=== PATIENT | female | born 1990 | race Caucasian/White ===

== ENCOUNTER → 2017-10-03 16:16 | Outpatient (CLI) | payer OTHER, MEDICAID, SELFPAY ==
--- NOTE | 2017-10-03 16:20 | DI.MRI.S_ITS ---
PROCEDURE: MR HEAD/BRAIN WO/W CON INDICATIONS: DIZZINESS TECHNIQUE: Noncontrast axial T1 spin echo, axial T2 fast spin echo, sagittal and axial FLAIR, coronal T2 fast spin echo, axial gradient echo, axial diffusion and ADC through the brain. After the administration of contrast, axial and coronal 3D VIBE or T1 spin echo with fat saturation through the brain. COMPARISON: None. FINDINGS: Image quality: Excellent. CSF Spaces: Basal cisterns are patent. No extra-axial fluid collections. Ventricles are normal in size and shape. Brain: No midline shift. No intracranial bleeds or masses. No abnormal intracranial enhancement. The brainstem appears normal. Diffusion-weighted images demonstrate no acute ischemic insults. No chronic ischemic insults. Normal intravascular flow voids are present. Skull and face: Calvarial marrow is normal in signal. Orbits appear normal. Sinuses: Sinuses and mastoids appear clear. IMPRESSION: No acute intracranial findings. No findings to explain patient's dizziness. Dictated by: Rabia Figueroa M.D. on 10/03/2017 at 16:25 Approved by: Rabia Figueroa M.D. on 10/03/2017 at 16:28
== END ==
PROVIDERS: PCP Nurse Practitioner Family; Visit Provider Family Medicine
DX: R42 Dizziness and giddiness (principal)
CPT/HCPCS: 70553; A9579

== ENCOUNTER → 2019-10-19 08:39 | Outpatient (CLI) | payer OTHER, SELFPAY ==
--- NOTE | 2019-10-19 | DI.RAD.S_ITS ---
PROCEDURE: FL BARIUM SWALLOW INDICATIONS: Dysphagia, unspecified COMPARISON: None. FINDINGS: Function: There is normal esophageal peristalsis. No elicited gastroesophageal reflux. There is normal transit of a calibrated barium tablet through the esophagus into the stomach. There is normal initiation incoordination of the oral phase of swallowing reflex. No penetration of the airway. No pooling of contrast material in the vallecular or piriform sinuses. No esophageal dysmotility identified. Morphology: Air-contrast images demonstrate normal mucosal morphology. Single contrast views show no esophageal strictures, extrinsic mass effects, or diverticula. Limited images of the stomach demonstrate normal appearance. IMPRESSION: Normal barium swallow study. Dictated by: Hazel Garcia MD, PhD on 10/19/2019 at 13:29 Approved by: Hazel Garcia MD, PhD on 10/19/2019 at 13:30
== END ==
PROVIDERS: PCP Family Medicine; Referring Provider Family Medicine; Visit Provider Family Medicine
DX: R13.10 Dysphagia, unspecified (principal)
CPT/HCPCS: 74220

== ENCOUNTER → 2019-12-21 09:18 | Outpatient (CLI) | payer OTHER, SELFPAY ==
[2019-12-22 19:18] LABS: COVID19 Sendout Not Detected (Not Detect)
== END ==
PROVIDERS: PCP Family Medicine; Visit Provider Physician Assistant
DX: Z11.59 Encounter for screening for other viral diseases (principal)
CPT/HCPCS: 87635

== ENCOUNTER 2019-12-24 14:47 | Day surgery (SDC) | payer OTHER, SELFPAY ==
[2019-12-24] VITALS (9 sets, daily range): BP systolic 104–128; BP diastolic 62–87; PULSE 68–90; RESP 12–20; TEMP 36.2–36.6; O2SAT 94–100; BMI 29.2
--- NOTE | 2019-12-24 | PATH_ITS ---
[facility] Accession Number: [id number] . 01 Material submitted: . PART A: duodenum - THIRD PORTION DUODENUM PART B: gastrointestinal site - ANTRUM PART C: gastrointestinal site - FUNDUS PART D: gastrointestinal site - BODY PART E: esophagus, E-G Junction - GE JUNCTION 6 O'CLOCK PART F: esophagus, E-G Junction - GE JUNCTION AT 9 O'CLOCK . 02 Diagnosis: A. Duodenum, Third Portion, Biopsy: Duodenal mucosa with no diagnostic abnormality. Negative for active inflammation, features of sprue, dysplasia, or malignancy. . B. Antrum, Biopsy: Gastric antral mucosa with mild chronic inflammation. Negative for Helicobacter organisms by immunohistochemistry. Negative for intestinal metaplasia. Negative for dysplasia or malignancy. . C-D: Fundus, Body, Biopsies: Body mucosa with no diagnostic abnormality. No evidence of Helicobacter organisms on H/E stain. Negative for intestinal metaplasia. Negative for dysplasia and malignancy. . E. Gastroesophageal Junction, 6 o'clock, Biopsy: Proximal gastric mucosa with mild chronic inflammation. Negative for specialized intestinal metaplasia, dysplasia or malignancy. . F. Gastroesophageal Junction at 9 o'clock, Biopsy: Squamocolumnar junctional mucosa with mild chronic inflammation. Negative for specialized intestinal metaplasia, dysplasia or malignancy. [facility] 12/29/2019 1259 Local . 02 Electronically signed: . Anirudh Cortes MD, PhD, Pathologist NPI- [id number] . 01 Gross description: . Part A: THIRD PORTION DUODENUM: Received in formalin is 1 fragment(s) of frost, soft tissue measuring 0.3 x 0.3 x 0.3 cm submitted entirely in 1 cassette(s) Part B: ANTRUM: Received in formalin are 2 fragment(s) of frost, soft tissue measuring 0.1 x 0.1 x 0.1 cm to 0.3 x 0.2 x 0.2 cm submitted entirely in 1 cassette(s) Part C: FUNDUS: Received in formalin are 2 fragment(s) of frost, soft tissue measuring 0.2 x 0.2 x 0.2 cm to 0.3 x 0.2 x 0.2 cm submitted entirely in 1 cassette(s) Part D: BODY: Received in formalin are 2 fragment(s) of frost, soft tissue measuring 0.1 x 0.1 x 0.1 cm to 0.3 x 0.2 x 0.2 cm submitted entirely in 1 cassette(s) Part E: GE JUNCTION 6 O'CLOCK: Received in formalin is 1 fragment(s) of frost, soft tissue measuring 0.2 x 0.2 x 0.2 cm submitted entirely in 1 cassette(s) Part F: GE JUNCTION AT 9 O'CLOCK: Received in formalin is 1 fragment(s) of frost, soft tissue measuring 0.1 x 0.1 x 0.1 cm submitted entirely in 1 cassette(s) /ANTONIO 12/27/2019 1944 Local . 02 Microscopic: . B. An immunohistochemical stain was performed to evaluate for Helicobacter organisms and is negative. The control stain showed appropriate reactivity. . * This test was developed and its performance characteristics determined by [facility]. It has not been cleared or approved by the U.S. Food and Drug Administration. The FDA has determined that such clearance or approval is not necessary. This test is used for clinical purposes. It should not be regarded as investigational or for research. . 02 Pathologist provided ICD-10: K29.70, K20.9 . 02 CPT . 169429, 471094, 606802, 572203, 076575, 464853, D10703 Performed at: 01 [facility] [address], [place], [place] [id number] MD Randy Carlson MD Phone: [phone] Performed at: 02 [facility] [address] [place], [place] [id number] MD Audrey Alcantar MD Phone: [phone]
--- NOTE | 2019-12-24 12:14 | P.HP_ITS ---
History of Present Illness History of Present Illness Date Patient Seen: 12/24/19 Chief complaint: SDC Narrative: 29 Years Old Female seen today for consideration of a diagnostic EGD. Reports difficulty with swallowing, solids worse than liquids. Denies sensation of fullness. No nausea or vomiting. No epigastric pain. Has been evaluated by ENT, they think that there may be an anxiety component. Barium swallow on 10/19/2019 was normal. Overall health issues have been stable, inclu ding no major cardiac events for at least 6 weeks. Current Medications (verified): 1) Hydroxyzine Hcl 25 Mg Oral Tablet (Hydroxyzine Hcl) .... Take 1 tablet 4 times daily as needed for anxiety 2) Citalopram Hydrobromide 10 Mg Oral Tablet (Citalopram Hydrobromide) .... Take one tablet daily, for treatment of depression or anxiety. 3) Hydrochlorothiazide 25 Mg Oral Tablet (Hydrochlorothiazide) .... Take one tablet by mouth daily. 4) Multi-Vitamin/minerals Oral Tablet (Multiple Vitamins-Minerals) .... take one daily Allergies (verified): No Known Drug Allergies Past Medical History: Meniere's disease Anxiety Dysphagia Right foot pain Dizziness Past Surgical History: wisdom teeth Family History: Father: alcohol Mother: Breast cancer, hypertension, hypothyroidism Sister: thyroid issues Brother: asthma Social History: Marital Status: Children: 1 daughter, 1 son Occupation: Bookekeeper Household Members: spouse, children Education: 14 Exercise Times per Week: 3 Sun Exposure: frequently Seat Belt Use: yes Meds Home Medications and Allergies Home Medications Medication Instructions Recorded Confirmed Type VIT#96/FERROUS FUM/FA 1 tab PO Q DAY #90 05/21/12 12/24/19 Rx ( Tablet) citalopram 10 mg PO DAILY 12/24/19 12/24/19 History hydrochlorothiazide 25 mg PO DAILY 12/24/19 12/24/19 History Allergies Allergy/AdvReac Type Severity Reaction Status Date / Time No Known Drug Allergies Allergy Verified 12/24/19 14:58 Review of Systems Review of Systems ROS: Yes All systems reviewed with the patient and are negative except as otherwise documented Exam Narrative Exam Narrative: GENERAL: Alert and oriented, appearing stated age and in no acute distress. HEENT: Head normocephalic/atraumatic. Pupils equal, round, and reactive to light and accomodation. Extraocular muscles intact. Tympanic membranes clear. Nasal mucosa moist, septum midline. Oral mucosa moist, no lesions. Neck soft and supple, no lymphadenopathy. LUNGS: Clear to ausculation bilaterally, no wheezes, rhonchi or rales. CV: Normal S1 and S2 with regular rate and rhythm, no audible murmurs, rubs or gallops. ABDOMEN: Soft, non-tender, non-distended, no organomegaly. Positive bowel sounds. EXTREMITIES: No clubbing, cyanosis, or edema. NEURO: Cranial nerves II through XII grossly intact, no focal deficits. PSYCH: Alert and oriented x 3. SKIN: No concerning lesions. Assessment & Plan Assessment & Plan narrative: 1. Dysphagia PLAN: EGD The nature and character of the procedure as well as anticipated results were discussed. The possibility of not completing the procedure was also discussed. Possible complications including aspiration pneumonia, bleeding, perforation and reaction to medications either for sedation or preparation and missed lesions were discussed. Questions were answered and proceeding to the colonoscopy was elected. Informed consent signed. I sincerely appreciate the referral allowing me to participate in this patient's care. Please contact me with any questions or concerns.
--- NOTE | 2019-12-24 12:15 | PM.OP.ENDO ---
Operative Date/Time/Diagnoses Date of procedure: 12/24/19 Procedure Notes SCOAP/Timeout: 3:38 pm Procedure in detail: ENDOSCOPIST: Elle Hernandez MD Sedation RN: Rosy Carmona RN Anesthesiologist: Dr. Valenzuela Sedation start time: 3:39 p.m. Sedation end time: 4:15 p.m. PROCEDURE: EGD with biopsy REFERRING PROVIDER: Nain Moise MD INDICATIONS: 1. Dysphagia MEDICATION: Versed 12 mg and fentanyl 200 mcg administered with very little effect. Anesthesia was called to bedside secondary to failed sedation. Dr. Valenzuela administered 80 mg of propofol and adequate sedation was finally achieved. ASA Ratin DURATION OF PROCEDURE: 9 minutes. COMPLICATIONS: None. LIMITATIONS: None EXTENT OF PROCEDURE: Third portion of the Duodenum. PROCEDURE: The high-definition gastroduodenoscope was introduced into the posterior oropharynx under direct vision after Hurricaine spray, noted IV sedation, and proper informed consent. The esophagus was identified and intubated under direct visualization. The scope was quickly passed through the esophagus and into the fundus of the stomach. A clear fundal pool was aspirated. The scope was then advanced to the antrum and the pylorus was identified. The scope was passed through the pylorus into the second and third portions of the duodenum. No abnormalities were noted in the duodenum, duodenal bulb or pyloric channel. Random biopsies taken x2. The antrum had minor superficial hyperemesis and targeted biopsy taken x2. J maneuver was produced. No abnormalities were noted of the proximal body, fundus or cardia. Random biopsy taken x2. A small hiatal hernia was noted. Scope was broken out of the J maneuver and the remainder of the stomach was carefully inspected upon withdrawal and was normal, random biopsy taken x2. The stomach was carefully deflated of all air on withdrawal. The distal esophagus was carefully inspected and Z-line was noted to be irregular, 2 biopsies taken at 6 and 9 o'clock. Top of the gastric folds noted at 40 cm from the incisors; circumferential extent of the metaplasia was 38 cm from the incisors; maximal extent of the metaplasia was 37 cm from the incisors. The remainder of the esophagus was normal upon withdrawal. The larynx and vocal cords appeared to be unremarkable. IMPRESSION: 1. Superficial hyperemesis, antrum 2. Small hiatal hernia 3. Endoscopically suspected esophageal mucosa, C3M2 PLAN: 1. Follow-up in clinic status post pathology results. The possibility of missed lesion including a malignancy was discussed prior with the patient. Potential alarm symptoms have been discussed and should be reported by the patient immediately.
[2019-12-24] MEDS: LACTATED RINGERS 1,000 ML 200 ML IV ×2 (15:10→16:29)
[2019-12-24] MEDS: MIDAZOLAM 5 MG/5 ML VIAL IV (15:39)
[2019-12-24] MEDS: fentaNYL 250 MCG/5 ML INJ IV (15:39)
[2019-12-24] MEDS: LIDOCAINE 4% SOLN 50 ML 20 ML TOP (15:39)
[2019-12-24] MEDS: LIDOCAINE JELLY 2% 5 ML 1 APPLIC TOP (15:41)
--- NOTE | 2019-12-24 17:28 | SUR.PHASEII ---
Pt awake and alert. Pt states no dizziness, but states she is tired. Pt states she is cold. Temp 97.9. Arms cool, legs warm. Offered warm coffee - pt refused. Pt sent home with a warm blanket.
== END 2019-12-24 17:10 | disposition home or self-care (01) ==
PROVIDERS: PCP Family Medicine; Referring Provider Student in an Organized Health Care Education/Training Program; Visit Provider Student in an Organized Health Care Education/Training Program
PROC: 0DJ08ZZ Inspection of Upper Intestinal Tract, Via Natural or Artificial Opening Endoscopic (ICD-10-PCS; CPT 43235; principal; 2019-12-24 16:00)
DX: K20.9 Esophagitis, unspecified (principal); F41.9 Anxiety disorder, unspecified; F32.9 Major depressive disorder, single episode, unspecified; K44.9 Diaphragmatic hernia without obstruction or gangrene; K29.50 Unspecified chronic gastritis without bleeding
CPT/HCPCS: 43239; J2250; J3010

== ENCOUNTER → 2020-06-06 14:00 | Outpatient (CLI) | payer OTHER, SELFPAY ==
--- NOTE | 2020-06-06 14:02 | DI.US.S_ITS ---
PROCEDURE: US OB <= 14 WEEKS FETUS INDICATIONS: SIZE AND DATES OUTSIDE/PRIOR DATING DATA: Last menstrual period (LMP): 04/17/2020 LMP-based estimated date of delivery (LALY): 01/22/2021. First dating scan (date and location): 06/06/2020. Estimated date of delivery (LALY) from first dating scan: 01/18/2021. TECHNIQUE: Real-time scanning was performed of the fetus and maternal pelvic organs, with image documentation. Endovaginal scanning was also performed to better visualize the fetus and maternal ovaries. COMPARISON: None. FINDINGS: Embryo: [place]-rump length measures 14 mm corresponding to 7 weeks 5 days. Embryonic heart rate measures 100 beats per minute. Measurement variability in dating: +/- 4 weeks by LMP, +/- 7 days by mean sac diameter (use before 6 weeks gestation if crown-rump length not able to be measured), +/- 5 days by crown-rump length (up to 8 weeks 6 days gestation), +/- 7 days by crown-rump length (up to 13 weeks 6 days gestation). Maternal organs: Ovaries within normal limits with left corpus luteal cyst. IMPRESSION: 7 week 5 day single living IUP. Dictated by: Ezra Saldivar [facility] Interpreted: Stephanie Barone MD on 06/06/2020 at 15:25 Approved by: Stephanie Barone M.D. on 06/06/2020 at 18:15
== END ==
PROVIDERS: PCP Family Medicine; Referring Provider Family Medicine; Visit Provider Family Medicine
DX: Z36.87 Encounter for antenatal screening for uncertain dates (principal); Z3A.01 Less than 8 weeks gestation of pregnancy
CPT/HCPCS: 76801

== ENCOUNTER → 2020-08-30 11:49 | Outpatient (CLI) | payer OTHER, SELFPAY ==
--- NOTE | 2020-08-30 | DI.US.S_ITS ---
PROCEDURE: US OB >= 14 WEEKS FETUS INDICATIONS: 20 WEEK ANATOMICAL SURVEY OUTSIDE/PRIOR DATING DATA: Last menstrual period (LMP): 04/16/2020. LMP-based estimated date of delivery (LALY): 01/22/2021 . First dating scan (date and location): 06/06/2020 . Estimated date of delivery (LALY) from first dating scan: 01/18/2021 . TECHNIQUE: Real-time scanning was performed of the fetus, with image documentation and biometric measurements. Endovaginal scanning: No COMPARISON: None. FINDINGS: General: A single living intrauterine gestation is present. Presentation: Vertex. Placenta: Placental position is posterior, without previa. Amniotic fluid index: 10 cm, normal range is 5-24 cm. heart rate: 152 beats per minute. Maternal cervical canal: 5.8 cm long. Normal lower limit is 2.5 cm. biometrics: Biparietal diameter: 19 weeks 3 days Head circumference: 18 weeks 6 days Abdominal circumference: 19 weeks 4 days Femur length: 19 weeks 5 days Estimated gestational age from initial scan: 19 weeks 6 days Composite gestational age from present scan: 19 weeks 3 days Estimated weight and percentile: 299 g; 29th percentile Measurement variability for biometric dating: +/- 7 days from 14 weeks to 15 weeks 6 days gestation, +/- 10 days from 16 weeks to 21 weeks 6 days gestation, +/- 2 weeks from 22 weeks to 27 weeks 6 days gestation, +/- 3 weeks for 28 weeks gestation or later. weight reference: 4500 g or EFW >90/95% is considered macrosomia or large for gestational age. EFW <10% is small for gestational age. EFW 5% or less is considered intra-uterine growth restriction. Anatomic survey: Neuro: Ventricles are non-dilated at less than 10 mm. Cisterna magna is normal at 3-11 mm. Cerebellum is normal in size and morphology. Nuchal skin fold: Normal at less than 6 mm between 14-21 weeks gestational age. Face: Nose and lips, facial profile are normal. Spine: No evidence for spina bifida. Heart: Not well seen. Diaphragm: Diaphragm is intact. Stomach: Left-sided stomach is present. Kidneys: No hydronephrosis. Normal is less than 5 mm in 2nd trimester, less than 7 mm in 3rd trimester. Cord: 3-vessel cord has orthotopic insertion. Bladder: Normal in size. Extremities: All 4 extremities identified. IMPRESSION: 1. Single living IUP redemonstrated and interval growth is normal. 2. heart not well visualized; otherwise normal anatomy. Follow-up recommended. Dictated by: Ezra TOLBERT Interpreted: Jeffrey Islas MD on 08/30/2020 at 16:10 Transcribed by: CHHAYA on 08/30/2020 at 16:12 Approved by: Jeffrey Islas M.D. on 08/30/2020 at 16:56
== END ==
PROVIDERS: PCP Family Medicine; Referring Provider Family Medicine; Visit Provider Family Medicine
DX: Z36.89 Encounter for other specified antenatal screening (principal); Z3A.19 19 weeks gestation of pregnancy
CPT/HCPCS: 76811

== ENCOUNTER → 2020-09-29 08:52 | Outpatient (CLI) | payer OTHER, SELFPAY ==
--- NOTE | 2020-09-29 08:53 | DI.US.S_ITS ---
PROCEDURE: US OB FOLLOW UP INDICATIONS: CARDIAC REVISUALIZATION OUTSIDE/PRIOR DATING DATA: Last menstrual period (LMP): 04/17/20. LMP-based estimated date of delivery (LALY): 01/22/21 First dating scan (date and location): 06/06/20 Estimated date of delivery (LALY) from first dating scan: 01/18/21 TECHNIQUE: Real-time scanning was performed of the fetus, with image documentation. Endovaginal scanning: Not needed COMPARISON: None. FINDINGS: A single living intrauterine gestation is present. Presentation: Transverse head left. Placenta: Placental position is posterior , without previa. Amniotic fluid index: 14.0 cm, normal range is 5-24 cm. heart rate: 147 beats per minute. Maternal cervical canal: 5.2 cm long. Normal lower limit is 2.5 cm. Estimated gestational age from initial scan: 24 weeks 1 day . Note: The prior OB ultrasound did not achieve adequate visualization of the four-chamber view of the heart and cardiac outflow tracts. The current study allows excellent visualization of the structures. IMPRESSION: Completion of the anatomic survey with normal-appearing four-chamber view of heart and ventricular outflow tracts. Dictated by: Ej Estrada M.D. on 09/29/2020 at 11:07 Approved by: Ej Estrada M.D. on 09/29/2020 at 11:10
== END ==
PROVIDERS: PCP Family Medicine; Referring Provider Family Medicine; Visit Provider Family Medicine
DX: Z36.2 Encounter for other antenatal screening follow-up (principal); Z3A.24 24 weeks gestation of pregnancy
CPT/HCPCS: 76816

== ENCOUNTER → 2020-12-29 09:37 | Outpatient (ROUT) | payer OTHER, SELFPAY | PROVIDERS: PCP Family Medicine; Visit Provider Family Medicine | DX: Z34.83 Encounter for supervision of other normal pregnancy, third trimester (principal) | CPT/HCPCS: 87081; 87147 ==

== ENCOUNTER 2021-01-09 11:12 | Observation (INO) | payer OTHER, MEDICAID, SELFPAY ==
--- NOTE | 2021-01-14 13:50 | PM.PROC.1 ---
Procedures Date/Time Date of procedure: 01/09/21 Time of procedure: 12:30 General Procedure description: External cephalic version After informed consent was obtained and a reactive nonstress test observed, an ultrasound was performed which confirmed the baby in the breech presentation with the head midline and spine 2 patient's right. Four attempts were made with a check of heart rate in between by ultrasound which were unsuccessful at moving the baby. At the completion of the procedure a nonstress test was performed which was reactive. The patient tolerated the procedure well. Complications: none
== END 2021-01-09 14:25 | disposition home or self-care (01) ==
PROVIDERS: Admitting Provider Obstetrics & Gynecology; PCP Family Medicine Adult Medicine; Referring Provider Obstetrics & Gynecology; Visit Provider Obstetrics & Gynecology
DX: O32.1XX0 Maternal care for breech presentation, not applicable or unspecified (principal); Z3A.38 38 weeks gestation of pregnancy
CPT/HCPCS: 59025; 59050; 59412; 76815; G0378; G0379

== ENCOUNTER 2021-01-16 13:09 | Inpatient (IN) | payer OTHER, MEDICAID, SELFPAY ==
--- NOTE | 2021-01-16 13:29 | P.HPOB_ITS ---
OB HPI Date/Time Date of admission: 01/16/21 Date Patient Seen: 01/16/21 Time Patient Seen: 13:29 History of Present Condition Chief complaint: : 3 Para: 2 Estimated Date of Delivery: 01/22/21 Estimated Gestational Age (weeks): 39 2/7 Narrative: Nika Landon is a 30 year old female with EDC well established with excellent care and ultrasound who presents with breech presentation. Attempted version failed. No other complications during except GBS positive. Indications Operative indications ( section): breech presentation Other reason(s) for admission: Breech presentation History of Present care: good care Dating criteria: LMP confirmed by 1st trimester US Ultrasounds: normal mid trimester US Obstetrical complications: none Medical complications: none Preadmission Labs Blood type: A (-) negative HCT: 35.6 PAP: Normal Cell-free DNA: Normal 1 hr GTT: 122 Prior (ies) History: [id number] weeks 6 hour labor [facility] female 7 lb 13 oz 02/03/2015 40 weeks 5 hour labor epidural [facility] 8 lb male Evaluation Evaluation Baseline heart rate: 140 Category of Tracing: Reactive Status: Category l PFSH Social History household members: family Smoking Status: Never smoker alcohol intake: current Meds Home Medications and Allergies Home Medications Medication Instructions Recorded Confirmed Type VIT#96/FERROUS FUM/FA 1 tab PO Q DAY #90 05/21/12 12/24/19 Rx ( Tablet) citalopram 10 mg tablet 10 mg PO DAILY 12/24/19 12/24/19 History hydrochlorothiazide 25 mg tablet 25 mg PO DAILY 12/24/19 12/24/19 History Allergies Allergy/AdvReac Type Severity Reaction Status Date / Time No Known Drug Allergies Allergy Verified 12/24/19 16:37 Review of Systems Review of Systems Narrative: All negative Exam Narrative Exam Narrative: Alert smiling female in no acute distress. Lungs clear heart regular rate and rhythm abdomen is gravid breech extremities are normal. Neurologic exam normal reflexes Assessment and Plan Assessment and Plan Assessment and Plan narrative: Term intrauterine with breech presentation here for section will proceed for delivery
--- NOTE | 2021-01-16 13:36 | PM.PREOP ---
Pre-operative Note COVID-19 COVID-19 status: Negative Result date/Date tested (Pos, Neg/Pending): 01/16/21 Interval Note History & Physical reviewed/Exam performed by Physician: Yes Changes to H&P: No H&P completed within 30 days and has changed as indicated here:: Today ASA Class (for procedural sedation): I
[2021-01-16] MEDS: LACTATED RINGERS 1,000 ML 100 ML IV ×4 (14:00→18:50)
[2021-01-16 14:09] LABS: Add Manual Diff / Slide Review NO; Basophils Absolute Auto 100 /uL (0-100); Basophils Percent Auto 0.8 % (0-2); Eosinophils Absolute Auto 0 /uL (0-450); Eosinophils Percent Auto 0.4 % (2-4); Hematocrit 40.3 % (36-46); Hemoglobin 13.3 g/dL (12.0-16.0); Lymphocytes Absolute Auto 1500 /uL (1100-4500); Lymphocytes Percent Auto 13.3 % (25-40); Mean Corpuscular HGB Conc 33.1 % (30-36); Mean Corpuscular Hemoglobin 28.5 PG (26-34); Monocytes Absolute Auto 400 /uL (0-900); Neutrophils Absolute Auto 9100 /uL (1500-7000); Neutrophils Percent Auto 81.5 % (50-75); Platelet Count 184 X10^3/uL (150-400); Red Blood Cell Count 4.68 X10^6/uL (4.0-5.2); Red Cell Distribution Width 13.5 % (11.6-14.8); White Blood Cell Count 11.1 X10^3/uL (4.5-11.0)
[2021-01-16 15:17] LABS: COVID19 - ADMIT (NP swab/PCR) Negative (Negative)
[2021-01-16] MEDS: ACETAMINOPHEN IV 1,000 MG/100 ML VIAL 400 MG IV (15:20)
[2021-01-16 15:30] VITALS: BP 121/73
[2021-01-16] MEDS: CEFOTETAN 2 GM in SODIUM CHLORIDE 0.9% 100 ML 200 ML IV (15:30)
--- NOTE | 2021-01-16 15:47 | SUR.OPER ---
Supine on Padded OR bed, head on pillow, safety belt at thigh, arms secured on padded arm boards at <90 degrees abduction. Bump under right buttock. Legs uncrossed with pillow under knees, gel pad to heels, tape over blanket to lower legs.
--- NOTE | 2021-01-16 15:50 | SUR.OPER ---
Viable male delivered at 1540. Placenta and cord blood sent with L&D nurse.
--- NOTE | 2021-01-16 16:31 | PM.OP.1 ---
Operative Date/Time/Diagnoses Date of procedure: 01/16/21 Time of procedure: 16:31 Pre-op diagnosis: Term intrauterine breech failed version Post-op diagnosis: same Procedure & Clinicians Procedure: Primary low-transverse section Same procedure as scheduled: Yes Indications: Breech presentation Surgeon: Nain Moise Senior Web Services Developer: Miriam Sandoval Click Yes if Unassisted: No Anesthesia Type: Spinal Operative Notes Findings: Viable male with Apgars 8 and 9. Normal pelvic organs. Closure Type: primary Specimen(s): none sent Estimated Blood Loss (mL): 500 Blood products transfused: none Procedure in detail: Patient was brought into labor and delivery. Consent was previously sign. We discussed with her and her risks and benefits she understands. Questions answered. Was brought to operative theater and followed all scopes procedures. Spinal was placed by Dr. Mclean without complications. She was placed in the wedge supine position. Us was placed. Prepped and draped in the usual manner. 2 g of cefotetan were given Pfannenstiel incision was then made through skin with excellent anesthesia. Down to the subcutaneous tissue small bleeder on the right side was treated with electrocautery. Subcutaneous tissue was then bluntly removed. Midline was cord on the fascia with scalpel. This was extended laterally under direct visualization with curved scissors. Steve is were used then to grass the superior aspect of the fascia was bluntly dissected off the muscle layer. Midline was sharply dissected. This is repeated inferior without complications. Midline was then bluntly dissected through the muscle layer until peritoneum was identified. It was grasped with hemostats and under direct visualization in was entered. And bluntly dissected. Bladder blade was placed. Incised and then bluntly developed. Bladder blade was then placed. Midline low transverse incision was done scored in and completed in the midline until clear fluid was noted. It was extended bluntly. The legs were then grasped and pulled through the incision and delivered body than once delivered the left arm and then the right arm was then delivered without complications. Carefully was delivered without much complications. Child received no resuscitation. Cord blood was then obtained. Cord gases were not done. Placenta was then manually extracted without complications. Wet lap sponge was then used to remove all products of conception this was repeated again without complications. Corners of the incision and there were grasped with [place] so along with the inferior aspect of the uterine incision ring forceps were passed through the cervical os without complications handed off the operative theater. Uterine incision was closed with locked running 0 Vicryl. A 2nd imbricating stitch was then done usual running fashion. Irrigation was done without complications and removed. Incision was then re-evaluated and found to have small amount of bleeding on the bladder flap which was cauterized. Bladder flap then closed with running 3-0 Vicryl. Perineum was then closed with running 2-0 Vicryl. Fascia was then closed with running 1 Vicryl. Irrigation was done without complications in removed. No bleeding was noted. Three 3-0 Vicryl interrupted sutures were used to approximate the wound edge. Incision was closed with running 4-0 subcuticular Vicryl. Usual dressing applied. All sponge instrument needle counts were correct. Mother and were in stable condition Post-operative Condition: stable Disposition: Acute Care Plan for aftercare: Transfer to labor and delivery for routine care
[2021-01-16 16:39] VITALS: BP 101/62; PULSE 75; RESP 12; O2SAT 98
[2021-01-16 16:49] VITALS: BP 114/67; PULSE 93; RESP 20; O2SAT 98
[2021-01-16 16:54] VITALS: BP 101/58; PULSE 84; RESP 16; O2SAT 97
[2021-01-16 16:59] VITALS: BP 109/62; PULSE 93; RESP 20; O2SAT 98
[2021-01-16] MEDS: KETOROLAC 30 MG/ML VIAL IV (22:15)
[2021-01-17 03:31] VITALS: BP 115/75; PULSE 83; RESP 16; TEMP 36.5
[2021-01-17] MEDS: KETOROLAC 30 MG/ML VIAL IV ×2 (04:16→10:48)
[2021-01-17 06:48] LABS: Add Manual Diff / Slide Review NO; Basophils Absolute Auto 0 /uL (0-100); Basophils Percent Auto 0.4 % (0-2); Eosinophils Absolute Auto 100 /uL (0-450); Eosinophils Percent Auto 0.9 % (2-4); Hematocrit 34.4 % (36-46); Hemoglobin 11.6 g/dL (12.0-16.0); Lymphocytes Absolute Auto 1400 /uL (1100-4500); Lymphocytes Percent Auto 13.1 % (25-40); Mean Corpuscular HGB Conc 33.8 % (30-36); Mean Corpuscular Volume 85.7 fL (80-100); Monocytes Absolute Auto 600 /uL (0-900); Neutrophils Absolute Auto 8600 /uL (1500-7000); Neutrophils Percent Auto 79.6 % (50-75); Platelet Count 156 X10^3/uL (150-400); Red Blood Cell Count 4.02 X10^6/uL (4.0-5.2); Red Cell Distribution Width 13.5 % (11.6-14.8); White Blood Cell Count 10.7 X10^3/uL (4.5-11.0)
--- NOTE | 2021-01-17 08:13 | PM.PN.1 ---
Subjective Subjective Date Patient Seen: 01/17/21 Time Patient Seen: 08:13 Interval history: Patient feeling well. Very tired. Was up all night breast-feeding. Latch seems good. No other issues. Bleeding is minimal. Pain is minimal. Has not done anything other than standing. Exam Vital Signs (past 8 hours): Oxygen Delivery Method Room Air Narrative Exam Narrative: Alert female no acute distress his fatigued in appearance lungs are clear. Heart regular rate and rhythm. Uterus is firm at umbilicus. Minimal tenderness. Incision is clean and dry. Extremities without swelling or edema Objective Labs Result Diagrams: 01/17/21 06:23 Labs: Laboratory Results - last 24 hr 01/16/21 01/16/21 01/16/21 13:19 13:19 14:07 WBC 11.1 H RBC 4.68 Hgb 13.3 Hct 40.3 MCV 86.0 MCH 28.5 MCHC 33.1 RDW 13.5 Plt Count 184 Neut % (Auto) 81.5 H Lymph % (Auto) 13.3 L [place] % (Auto) 4.0 Eos % (Auto) 0.4 L Baso % (Auto) 0.8 Neut # (Auto) 9100 H Lymph # (Auto) 1500 [place] # (Auto) 400 Eos # (Auto) 0 Baso # (Auto) 100 SARS-CoV-2 (PCR) Negative Blood Type A Negative Antibody Screen Negative 01/17/21 06:23 WBC 10.7 RBC 4.02 Hgb 11.6 L Hct 34.4 L MCV 85.7 MCH 29.0 MCHC 33.8 RDW 13.5 Plt Count 156 Neut % (Auto) 79.6 H Lymph % (Auto) 13.1 L [place] % (Auto) 6.0 Eos % (Auto) 0.9 L Baso % (Auto) 0.4 Neut # (Auto) 8600 H Lymph # (Auto) 1400 [place] # (Auto) 600 Eos # (Auto) 100 Baso # (Auto) 0 SARS-CoV-2 (PCR) Blood Type Antibody Screen [facility] Social History household members: family Smoking Status: Never smoker alcohol intake: current Assessment & Plan Assessment & Plan narrative: Postop day 1. Doing well. Routine care. Possible discharge tomorrow will see how things go. Follow-up 1 week 1st dressing removal Time Spent With Patient Critical Care time: I spent a total of [] minutes of critical care time on this patient's care today; this time is exclusive of procedural time.
[2021-01-17] MEDS: ACETAMINOPHEN 325 MG TABLET 650 MG PO ×2 (09:32→16:27)
[2021-01-17] MEDS: PRENATAL VIT,CALC/IRON/FOLIC 1 TABLET 1 TAB PO (09:32)
[2021-01-17] MEDS: DOCUSATE 100 MG CAPSULE 200 MG PO (09:32)
[2021-01-17] MEDS: IBUPROFEN 600 MG TABLET PO (16:28)
[2021-01-17] MEDS: RHO(D) IMMUNE GLOBULIN 1,500 UNIT SYRINGE 1500 UNIT IM (19:20)
[2021-01-18] MEDS: IBUPROFEN 600 MG TABLET PO ×3 (01:11→14:02)
[2021-01-18] MEDS: ACETAMINOPHEN 325 MG TABLET 650 MG PO ×3 (01:11→14:02)
[2021-01-18] MEDS: DOCUSATE 100 MG CAPSULE 200 MG PO (08:11)
[2021-01-18] MEDS: PRENATAL VIT,CALC/IRON/FOLIC 1 TABLET 1 TAB PO (08:11)
--- NOTE | 2021-01-18 09:17 | PM.OBDS.1 ---
Discharge Providers Provider Date of admission: 01/16/21 13:09 Discharge Date: 01/18/21 Primary care physician: Randy Gaona DO Consults: 01/16/21 17:42 Consult to [employer] Attendant Routine Comment: Discharge provider: Elle Hernandez MD Summary Hospital Course Date Patient Seen: 01/18/21 Time Patient Seen: 08:15 Diagnoses: 1. 30 yo 2. Status post primary LTCS at 39w2d 3. Breech presentation 4. GBS positive 5. Rh negative Hospital Course: Unremarkable. Mother is well. Tolerating full diet with no nausea or vomiting. Ambulating well. Lochia less than menses. Pain controlled with medication. ABO A+ with negative ANA. Rhogam administered at 19:30 on POD #1. On day of discharge, she is afebrile with stable vital signs throughout. Time spent on Discharge and Coordination of post-hospital care: 35 minutes Peripartum Data Infant Delivery Method: Section Procedures: 1. Primary LTCS, Dr. Moise, 01/16/21, no complications 2. Spinal, Dr. Mclean, 01/16/21, no complications complications: none Status at Discharge Cognitive/behavioral status at discharge: at baseline, oriented Functional status at discharge: independent ambulation Overall status at discharge: patient is progressing back to baseline Time Spent with Patient Time attestation: Total time spent providing and/or coordinating discharge services: 35 minutes. Objective Labs Result Diagrams: 01/17/21 06:23 Exam Vital Signs (past 8 hours): Oxygen Delivery Method Room Air Narrative Exam Narrative: General: No acute distress Skin: Color unremarkable, no rash or lesions HEENT: Neck supple with midline trachea Lungs: Clear to auscultation bilaterally Heart: Normal rate and regular rhythm, S1, S2 normal, no murmurs, clicks, rubs or gallops Abdomen: Firm fundus, U-1, soft, non-tender, positive bowel sounds. Incision clean, dry, intact. Extremities: No edema, no cyanosis Discharge Plan Discharge Plan Patient Disposition: Home Provider Discharge Comment: 1. Routine care 2. No driving for 2 weeks. 3. Call or return for uncontrolled pain, fever, intractable nausea or vomiting, trouble with urination, heavy vaginal bleeding greater than 1 pad per hour, suicidal/homicidal thoughts, signs or symptoms of infection, or any other concerns. Discharge orders & Medications Prescriptions: New ibuprofen 600 mg Tablet 600 mg PO Q6H PRN (Reason: Fever/Mild Pain (1-3)) Qty: 90 RF: 3 Prenatabs Rx 29 mg iron- 1 mg Tablet 1 tab PO DAILY Qty: 90 RF: 3 Continued VIT#96/FERROUS FUM/FA ( Tablet) 1 tab PO Q DAY Qty: 90 RF: 3 citalopram 10 mg Tablet 10 mg PO DAILY RF: 0 hydrochlorothiazide 25 mg Tablet 25 mg PO DAILY RF: 0 Follow up/Referrals: Randy Gaona DO [Primary Care Provider] - Nain Moise MD [Physician] - 01/23/21 10:15 am (for Aquacell dressing removal. Check in 15 minutes prior to appointment and a 6 week appointment on Friday, February 28 at 10:45 am) Diet/Activity/Treatments Diet: Diet as Tolerated Skin/Wound/Dressing Care Report to your healthcare provider any signs of infection, such as:: chills, fever, increased pain, unusual drainage and unusual redness Visit Report/Discharge Packet Instructions: DI for Discharge Data Primary Care Provider: Randy Gaona
== END 2021-01-18 14:50 | disposition home or self-care (01) | DRG 788 ==
PROVIDERS: Admitting Provider Family Medicine; PCP Family Medicine Adult Medicine; Referring Provider Family Medicine; Visit Provider Family Medicine
PROC: 10D00Z1 Extraction of Products of Conception, Low, Open Approach (ICD-10-PCS; CPT 59514; principal; 2021-01-16 15:15)
DX: O64.8XX0 Obstructed labor due to other malposition and malpresentation, not applicable or unspecified (principal); O99.824 Streptococcus B carrier state complicating childbirth; Z3A.39 39 weeks gestation of pregnancy; Z37.0 Single live birth; Z20.822 Contact with and (suspected) exposure to COVID-19
CPT/HCPCS: 36415; 59050; 59514; 76815; 85025; 85461; 86850; 86900; 86901; 87635; C9803; G0379; J0131; J1885; J2274; J2590; J2704; J2790

== ENCOUNTER → 2023-02-14 14:42 | Outpatient (CLI) | payer OTHER, MEDICAID, SELFPAY ==
--- NOTE | 2023-02-14 | DI.RAD.S_ITS ---
PROCEDURE: XR FOOT LT MIN 3V INDICATIONS: TOE PAIN TECHNIQUE: 3 views of the foot were acquired. COMPARISON: None. FINDINGS: Bones: No fractures or dislocations. No suspicious bony lesions. No significant degenerative change. Soft tissues: No tibiotalar joint effusion. Achilles tendon appears normal. IMPRESSION: No evidence for acute osseous abnormality involving the left foot. Dictated by: Donovan Cabrales M.D. on 02/14/2023 at 16:51 Approved by: Donovan Cabrales M.D. on 02/14/2023 at 16:54
== END ==
PROVIDERS: PCP Family Medicine; Referring Provider Registered Nurse; Visit Provider Registered Nurse
DX: S99.922A Unspecified injury of left foot, initial encounter (principal); X58.XXXA Exposure to other specified factors, initial encounter
CPT/HCPCS: 73630

== ENCOUNTER → 2023-10-22 12:46 | Outpatient (CLI) | payer OTHER, MEDICAID, SELFPAY ==
[2023-10-22 14:16] LABS: Thyroid Stimulating Hormone 2.27 uIU/mL (0.47-4.68)
== END ==
PROVIDERS: PCP Family Medicine; Referring Provider Family Medicine; Visit Provider Family Medicine
DX: R79.89 Other specified abnormal findings of blood chemistry (principal)
CPT/HCPCS: 36415; 84443